=== PATIENT | female | born 1980 | race Caucasian/White ===

== ENCOUNTER 2016-12-10 18:27 | Outpatient (CLI) | payer MEDICAID | END 2016-12-10 18:28 | disposition critical access hospital (66) | LOC: EMS 18:27 | PROVIDERS: ATTEND Surgery | DX: R55 Syncope and collapse (principal) | CPT/HCPCS: A0425; A0429 ==

== ENCOUNTER 2016-12-10 18:44 | Emergency (ER) | payer OTHER, MEDICAID ==
[2016-12-10] MEDS: SODIUM CHLORIDE 0.9% 1,000 ML IV ONE (19:28)
[2016-12-10 19:32] LABS: BILIRUBIN,URINE NEGATIVE (NEGATIVE); PH,URINE 6.5 PH (5.0-7.5)
[2016-12-10 19:35] LABS: BASOPHILS # (AUTO) 0.1 10^3/uL (0.0-0.1); BASOPHILS % (AUTO) 0.9 %; EOSINOPHILS # (AUTO) 0.2 10^3/uL (0.0-0.7); EOSINOPHILS % (AUTO) 3.2 %; HCT - HEMATOCRIT 39.5 % (37.0-47.0); HGB - HEMOGLOBIN 13.4 g/dL (12.0-16.0); LYMPHOCYTES # (AUTO) 1.9 10^3/uL (1.5-3.5); LYMPHOCYTES % (AUTO) 27.6 %; MEAN CORPUSCULAR HEMOGLOBIN 32.5 pg (27.0-31.0); MEAN CORPUSCULAR HGB CONC 33.9 g/dL (32.0-36.0); MONOCYTES # (AUTO) 0.6 10^3/uL (0.0-1.0); MONOCYTES % (AUTO) 8.7 %; NEUTROPHILS # (AUTO) 4.1 10^3/uL (1.5-6.6); NEUTROPHILS % (AUTO) 59.6 %; NUCLEATED RED BLOOD CELLS AUTO 0.1 /100WBC; RED BLOOD COUNT 4.11 10^6/uL (4.20-5.40); RED CELL DISTRIBUTION WIDTH 13.1 % (12.0-15.0); UNCORRECTED WHITE BLOOD COUNT 6.9 x10^3/uL; WHITE BLOOD COUNT 6.9 x10^3/uL (4.8-10.8)
[2016-12-10 19:47] LABS: ALBUMIN/GLOBULIN RATIO 1.1 (1.0-2.2); BILIRUBIN,TOTAL 0.2 mg/dL (0.2-1.0); CALCIUM 9.6 mg/dL (8.5-10.3); CREATININE 0.7 mg/dL (0.4-1.0); POTASSIUM 3.9 mmol/L (3.5-5.0); TOTAL PROTEIN 7.6 g/dL (6.7-8.2)
[2016-12-10 19:50] LABS: HCG UR QUAL NEGATIVE; UA w/ MICROSCOPIC CHARGE YES
[2016-12-10 19:51] LABS: UR CULTURE IF IND NOT INDICATED; WBC,URINE 0-3 /HPF (0-5)
[2016-12-10] MEDS: SULFAMETH/TRIMETH DS 800/160 MG TABLET PO STA (21:10)
[2016-12-10] MEDS ORDERED: SULFAMETH/TRIMETH DS 800/160 MG TABLET PO ONE (21:11)
--- NOTE | 2016-12-10 21:25 | ED Physician Documentation ---
History of Present Illness - Stated complaint Stated Complaint: SYNCOPE - Chief complaint Chief Complaint: Neuro - Additonal information Additional information: Patient is a pleasant 36-year-old female who is otherwise healthy. She presents with a complaint of a syncopal episode. The syncopal episode happened when she went from a sitting to standing position. She got very lightheaded and fell down. She denies any injury to her head, neck, chest abdomen any other extremities. She denies any preceding chest pain shortness of breath nausea vomiting says she felt fine. She only complains of being cold at the present time. Review of systems: For pertinent positive and negatives in the review of systems please see the history of present illness, otherwise all other systems have been reviewed and are negative. [employer] disclaimer: Parts of this medical record were created using voice recognition technology. Because of the inherent limitations of this system, occasional same sounding word substitutions do occur and persist despite proofreading. Please read the document for context. Review of Systems Constitutional: denies: Fever, Chills Cardiac: denies: Chest pain / pressure, Palpitations Respiratory: denies: Dyspnea, Cough GI: denies: Nausea, Vomiting PD PAST MEDICAL HISTORY - Past Medical History Past Medical History: No - Past Surgical History Past Surgical History: No - Present Medications Home Medications: Ambulatory Orders Medication Instructions Recorded Confirmed Sulfamethox/Trimeth 800/160 1 each PO BID #6 tablet 12/10/16 [Bactrim Ds 800/160] - Allergies Allergies/Adverse Reactions: Allergies Allergy/AdvReac Type Severity Reaction Status Date / Time No Known Drug Allergies Allergy Verified 03/12/16 19:28 - Social History Does the pt smoke?: Yes Smoking Status: Current every day smoker PD ED PE NORMAL - Vitals Vital signs reviewed: Yes - General General: Alert and oriented X 3, No acute distress, Well developed/nourished - HEENT HEENT: Atraumatic, PERRL, Pharynx benign, Dentition benign - Neck Neck: Supple, no meningeal sign, No bony TTP, No JVD - Cardiac Cardiac: RRR, No murmur, No gallop - Respiratory Respiratory: No respiratory distress, Clear bilaterally - Abdomen Abdomen: Normal bowel sounds, Soft, Non tender, Non distended - Derm Derm: Normal color, Warm and dry - Extremities Extremities: No deformity, No tenderness to palpate, Normal ROM s pain, No edema - Neuro Neuro: Alert and oriented X 3, No motor deficit Results - Vitals Vitals: Vital Signs - 24 hr 12/10/16 12/10/16 12/10/16 18:46 19:10 19:31 Temperature 36.7 C Heart Rate 77 85 Respiratory 14 16 Rate Blood Pressure 110/82 H 98/77 Blood Pressure 105/66 [Left] Blood Pressure 110/82 H [Right] O2 Saturation 97 98 12/10/16 12/10/16 12/10/16 20:06 20:27 21:01 Temperature 36.9 C Heart Rate 69 70 Respiratory 18 16 Rate Blood Pressure 110/97 H 107/76 Blood Pressure [Left] Blood Pressure [Right] O2 Saturation 95 97 Oxygen O2 Source Room air - Labs Labs: Laboratory Tests 12/10/16 12/10/16 12/10/16 19:20 19:20 19:25 WBC 6.9 RBC 4.11 L Hgb 13.4 Hct 39.5 MCV 96.0 MCH 32.5 H MCHC 33.9 RDW 13.1 Plt Count 254 MPV 8.0 Neut # 4.1 Lymph # 1.9 [place] # 0.6 Eos # 0.2 Baso # 0.1 Absolute Nucleated RBC 0.01 Nucleated RBCs 0.1 Sodium 139 Potassium 3.9 Chloride 102 Carbon Dioxide 29 Anion Gap 8.0 BUN 10 Creatinine 0.7 Estimated GFR (MDRD) 95 Glucose 118 H Calcium 9.6 Total Bilirubin 0.2 AST 29 ALT 44 Alkaline Phosphatase 87 Total Protein 7.6 Albumin 3.9 Globulin 3.7 Albumin/Globulin Ratio 1.1 Lipase 63 H Urine Color YELLOW Urine Clarity HAZY Urine pH 6.5 Ur Specific [place] 1.020 Urine Protein NEGATIVE Urine Glucose (UA) NEGATIVE Urine Ketones NEGATIVE Urine Occult Blood LARGE H Urine Nitrite NEGATIVE Urine Bilirubin NEGATIVE Urine Urobilinogen 0.2 (NORMAL) Ur Leukocyte Esterase TRACE H Urine RBC 0-5 Urine WBC 0-3 Ur Squamous Epith Cells MOD Squamous H Amorphous Sediment Moderate Urine Bacteria Moderate H Ur Microscopic Review INDICATED Urine Culture Comments NOT INDICATED Urine HCG, Qual NEGATIVE PD MEDICAL DECISION MAKING - ED course ED course: Patient is a 36-year-old female had a syncopal episode today. She has no significant health problems. She has a normal physical exam. EKG shows normal sinus rhythm normal MA QRS QT interval without ST segment elevation depression T -wave inversion of relative normal ECG. Blood work is unremarkable. Urine is equivocal for possible urinary tract infection. She felt a little warm and complained of chills and for this reason I will go ahead and start a short course of antibiotics so it is inconclusive whether in fact she really has a urinary tract infection or not. Disposition: To home Clinical impression: 1. Syncopal episode doubt cardiovascular cause or VT E 2. Possible mild urinary tract infection-will treat Departure - Departure Disposition: Home, Self Care Clinical Impression: Syncope Qualifiers: Syncope type: vasovagal syncope Qualified Code(s): R55 - Syncope and collapse Condition: Good Instructions: ED Syncope Vasovagal, ED UTI Cystitis Female Prescriptions: Sulfamethox/Trimeth 800/160 [Bactrim Ds 800/160] 1 each PO BID #6 tablet
[2016-12-10 21:36] VITALS: BP 116/87
== END 2016-12-10 21:36 | disposition home or self-care (01) ==
LOC: EDUNIT# → ED 18:44
DX: R55 Syncope and collapse (principal); R94.31 Abnormal electrocardiogram [ECG] [EKG]; F17.200 Nicotine dependence, unspecified, uncomplicated
CPT/HCPCS: 36415; 80053; 81001; 81003; 81025; 83690; 85025; 87086; 93005; 96360; 99284

== ENCOUNTER 2016-12-29 16:07 | Outpatient (CLI) | payer MEDICAID, OTHER | END 2016-12-29 16:08 | disposition critical access hospital (66) | LOC: EMS 16:07 | PROVIDERS: ATTEND Surgery | DX: T22.112A Burn of first degree of left forearm, initial encounter (principal); X12.XXXA Contact with other hot fluids, initial encounter; Y93.G3 Activity, cooking and baking; Y92.10 Unspecified residential institution as the place of occurrence of the external cause | CPT/HCPCS: A0425; A0429 ==

== ENCOUNTER 2016-12-29 16:25 | Emergency (ER) | payer MEDICAID, OTHER ==
[2016-12-29] MEDS ORDERED: IBUPROFEN 400 MG TABLET PO STA (16:36)
[2016-12-29] MEDS ORDERED: BACITRACIN OINT TOP STA (16:42)
[2016-12-29] MEDS ORDERED: BACITRACIN OINT TOP ONE (16:53)
[2016-12-29] MEDS ORDERED: IBUPROFEN 400 MG TABLET PO ONE (16:53)
--- NOTE | 2016-12-29 17:08 | XRAY Preliminary Report ---
Exam: XR Foot 3 View LT IMPRESSION: 1. No fracture. 2. Normal alignment. [facility] SITE ID: [id number]
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
[2016-12-29 17:53] VITALS: BP 128/88
== END 2016-12-29 17:49 | disposition home or self-care (01) ==
LOC: ED 16:25
DX: M79.672 Pain in left foot (principal); W20.8XXA Other cause of strike by thrown, projected or falling object, initial encounter; T22.212A Burn of second degree of left forearm, initial encounter; X12.XXXA Contact with other hot fluids, initial encounter
CPT/HCPCS: 73630; 99283; A9270